=== PATIENT | male | born 1985 | race Caucasian/White ===

== ENCOUNTER 2018-03-13 14:30 | Emergency (ER) | payer SELFPAY ==
[2018-03-13 14:32] VITALS: BP 116/71; PULSE 80; RESP 18; TEMP 36.6; O2SAT 97; BMI 22.0
--- NOTE | 2018-03-13 15:23 | ED.DCSUM_ITS ---
- ER Visit Summary Date of Service: 03/13/18 Chief Complaint: Thumb infection History of Present Illness: The patient is a 33 M who presents with an infection of his left thumb. It began 3 days ago. He complains of pain on the side of his nail. No systemic symptoms such as fevers nausea or vomiting. No history of prior similar symptoms. He does admit to biting his nails. Physical Examination: Afebrile vitals are stable Moist mucous membranes Heart regular No respiratory distress There is a synechia along the lateral nail fold of the left thumb he does not have tenderness along the pad or findings consistent with a felon his pain is isolated to the lateral part of the left thumb along the nail and there is fluctuance and visible pus under the skin Test Results: Not indicated Emergency Department Course and Treatment: Patient was anesthetized utilizing a digital block with 1% lidocaine. Good anesthesia was achieved. A linear incision was made with a #15 blade and there was a large amount of purulent drainage. Wound will be cleansed and dressed by nursing staff and bacitracin applied. We will place on clindamycin. He understands to return for new or worsening symptoms and otherwise to follow-up as an outpatient and was given a referral for primary care physician. Patient comfortable to plan to discharge. Treatment Plan: [] Disposition: Discharge Impression: Paronychia This note was generated with [employer] dictation software. It may contain incorrect words, spelling, and punctuation that were not noted in review of the chart prior to signing ED Disposition - Plan for ED Patient: Chief Complaint: Cellulitis Referrals: Care Physician,No Primary [Primary Care Provider] -
--- NOTE | 2018-03-13 15:23 | ED.DEP ---
ED Disposition - Plan for ED Patient: Chief Complaint: Cellulitis Instructions: ED Fingernail Infec Prescriptions: Clindamycin HCl [Cleocin] 300 mg PO Q8H #30 cap Referrals: Care Physician,No Primary [Primary Care Provider] - Aren Bazzi MD [STAFF PHYSICIAN] -
== END 2018-03-13 15:36 | disposition home or self-care (01) ==
LOC: ED 15:32
PROVIDERS: Emergency Provider Emergency Medicine
DX: L03.012 Cellulitis of left finger (principal)
CPT/HCPCS: 10060; 99282

== ENCOUNTER 2018-11-30 12:15 | Emergency (ER) | payer SELFPAY ==
[2018-11-30 12:17] VITALS: BP 143/104; PULSE 78; RESP 16; TEMP 36.6; O2SAT 98; BMI 24.5
--- NOTE | 2018-11-30 12:31 | ED.VISSUMM ---
- ER Visit Summary Date of Service: 11/30/18 Chief Complaint: Nausea vomiting diarrhea History of Present Illness: The patient is a 33 M with about 12-hour history of nausea vomiting and watery diarrhea, he has had about 10-15 episodes of watery diarrhea. He has intermittent abdominal cramping he has no abdominal pain at this time. He denies any fever chills back pain or urinary symptoms. No chest pain or shortness of breath. Physical Examination: Not appear in acute distress. Moist mucous membranes, no obvious facial deformity No C-spine tenderness supple neck. Regular rate and rhythm without any obvious murmurs Clear lungs bilaterally speaking in full sentences without any obvious respiratory distress Abdomen soft and nontender no guarding or rebound Moves all extremities without any difficulty or pain. Skin does not show any obvious rashes or lesions, no trauma. Alert oriented ?3 with no gross focal deficit Emergency Department Course and Treatment: Patient appears well. He does not feel lightheaded when he stands up. His heart rate is 78. He has moist mucous membranes. There is no indication for IV fluids. He has a soft and nontender abdomen with a history of present illness consistent with gastroenteritis. I had a long discussion with him, if he worsens, if he has fever chills or his abdominal pain becomes constant and changes in character he needs to return. At this time he does not wish IV fluids, we will treat him symptomatically with Bentyl and Zofran. This is likely a self-limiting entity, but if it persists he needs to be reevaluated he understands this. Disposition: Discharge stable condition Impression: Gastroenteritis This note was generated with [employer] dictation software. It may contain incorrect words, spelling, and punctuation that were not noted in review of the chart prior to signing ED Disposition - Plan for ED Patient: Disposition: Home or Assisted Living Instructions: ED Diet Vomiting Diarrhea Prescriptions: Ondansetron [Zofran Odt] 4 mg PO Q8H PRN PRN #10 tab PRN Reason: Nausea Dicyclomine HCl [Bentyl] 20 mg PO TIDAC #20 cap Referrals: Miguel Steward MD [[facility]] - 3-5 Days
[2018-11-30] MEDS: Dicyclomine 10 MG Capsule 20 MG PO (12:46)
[2018-11-30] MEDS: Ondansetron ODT 4 MG Tablet PO (12:46)
== END 2018-11-30 12:52 | disposition home or self-care (01) ==
PROVIDERS: Emergency Provider Emergency Medicine
DX: K52.9 Noninfective gastroenteritis and colitis, unspecified (principal)
CPT/HCPCS: 99283

== ENCOUNTER 2021-06-05 14:17 | Emergency (ER) | payer SELFPAY ==
[2021-06-05 14:18] VITALS: BP 149/89; PULSE 64; RESP 15; TEMP 36.4; O2SAT 100; BMI 26.5
--- NOTE | 2021-06-05 14:20 | RAD_ITS ---
STUDY: X-RAY - RIGHT HAND REASON FOR EXAM: Male, 36 years old. INJURY. Pain overlying the fourth and fifth metacarpals. TECHNIQUE: 3 view(s) of the hand. COMPARISON: None. FINDINGS: Normal radiocarpal articulation. Normal distal radioulnar joint. Normal visualized carpal bones. Normal carpal articulations Normal carpometacarpal articulation of the thumb. Normal second through fifth carpometacarpal joints. Normal metacarpi. Normal metacarpophalangeal joint of the thumb. Normal interphalangeal joint of the thumb. Normal proximal and distal phalanges of the thumb. Normal metacarpophalangeal joints of the second through fifth fingers. Normal proximal and distal interphalangeal joints of the second through fifth fingers. Normal phalanges of the second through fifth fingers. The soft tissue structures are unremarkable. RAD/Hand Min 3 Views IMPRESSION: Normal x-ray examination of the hand. Electronically Signed: Nabil Aguiar MD at 14:41 EDT , Service support ,
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
== END 2021-06-05 15:00 | disposition home or self-care (01) ==
LOC: ED 14:50
PROVIDERS: Emergency Provider Emergency Medicine
DX: S60.221A Contusion of right hand, initial encounter (principal); X58.XXXA Exposure to other specified factors, initial encounter
CPT/HCPCS: 73130; 99282